=== PATIENT | female | born 1995 | race Caucasian/White ===

== ENCOUNTER 2018-07-22 18:27 | Emergency (ER) | payer OTHER ==
[2018-07-22 19:00] VITALS: RESP 18
--- NOTE | 2018-07-22 20:23 | ED PDOC ---
HPI: Abdomen Time Seen by Provider: 07/22/18 19:39 Chief Complaint (Nursing): Female Genitourinary History Per: Patient History/Exam Limitations: no limitations Onset/Duration Of Symptoms: Days Outside of [place] travel?: No Current Symptoms Are (Timing): Still Present Location Of Pain/Discomfort: Suprapubic Associated Symptoms: Nausea, Vomiting Additional Complaint(s): No PMHx presenting with lower abdominal pain and distension. States that she was in the ER on Thursday for fever and chills and wad diagnosed with UTI and bladder distension, states she was instructed to followup with INSPECTOR AIDE, states today she followed up and was checked, states that she was instructed by her INSPECTOR AIDE to get a sonogram of her pelvis because of her bladder distension. States she has no issues with urinating. States this morning she had nausea and one episode of vomiting that went away. States she feels abdominal discomfort and bloating. Patient relates she has constipation as well. Past Medical History Reviewed: Historical Data, Nursing Documentation, Vital Signs Vital Signs: Last Vital Signs Temp 98.0 F 07/23/18 00:06 Pulse 84 07/23/18 00:06 Resp 18 07/23/18 00:06 BP 122/78 07/23/18 00:06 Pulse Ox 100 07/23/18 00:06 - Medical History PMH: No Chronic Diseases - Family History Family History: States: Diabetes, Hypertension - Home Medications Home Medications: Ambulatory Orders Medication Instructions Recorded Ondansetron ODT [Zofran ODT] 1 odt PO BID PRN #6 odt 10/03/14 Pantoprazole Sodium [Protonix] 40 mg PO DAILY #10 ect 10/03/14 Naproxen [Naprosyn] 500 mg PO BID #20 tablet 07/17/18 Sulfamethoxazole/Trimethoprim 1 tab PO BID #14 tab 07/17/18 [Bactrim DS 800 mg-160 mg] Nitrofurantoin Macrocrystals 100 mg PO BID 5 Days cap 07/22/18 [Macrobid] - Allergies Allergies/Adverse Reactions: Allergies Allergy/AdvReac Type Severity Reaction Status Date / Time No Known Allergies Allergy Verified 07/22/18 18:55 Review of Systems ROS Statement: Except As Marked, All Systems Reviewed And Found Negative Gastrointestinal: Positive for: Nausea, Vomiting, Abdominal Pain Physical Exam - Reviewed Nursing Documentation Reviewed: Yes Vital Signs Reviewed: Yes - Physical Exam Appears: Positive for: Well, Non-toxic, No Acute Distress Head Exam: Positive for: ATRAUMATIC, NORMAL INSPECTION, NORMOCEPHALIC Skin: Positive for: Normal Color, Warm, DRY Eye Exam: Positive for: EOMI, Normal appearance, PERRL ENT: Positive for: Normal ENT Inspection Neck: Positive for: Normal, Painless ROM Cardiovascular/Chest: Positive for: Regular Rate, Rhythm Respiratory: Positive for: CNT, Normal Breath Sounds Gastrointestinal/Abdominal: Positive for: Normal Exam, Soft, Distended ( Suprapubic distension) Back: Positive for: Normal Inspection Extremity: Positive for: Normal ROM Neurologic/Psych: Positive for: Alert, Oriented - ECG O2 Sat by Pulse Oximetry: 99 Pulse Ox Interpretation: Normal Medical Decision Making Medical Decision MakinPM Patient presenting with lower abdominal discomfort and distension -patient comfortable appearing with normal vitals, however has distended lower abdomen indicative of urinary retention -patient able to void freely -will check sonogram of abdomen to check for other pathology 22:30 Renal Ultrasound FINDINGS: Right kidney: Mild hydronephrosis. No stones. No solid mass. No hydronephrosis. Left kidney: No hydronephrosis. No stones. No solid mass. No hydronephrosis. Bladder: Echogenic debris in the bladder. IMPRESSION: Mild bilateral hydronephrosis with echogenic debris in the bladder. Patient was given results, states she is pain free at this time. Advised straight cath or vazquez catheter to decompress bladder but patient refused, states that she thinks it may be related to the ABx because she states the distension started after taking bactrim. Patient asked several times to allow for catheter and refused, advised patient that her bloating may get worse, patient understood this. Discharged in well appearing condition. Disposition - Clinical Impression Clinical Impression: Bladder distension - Disposition Referrals: Sonal Jacobo MD [Family Provider] - Disposition: Routine/Home Disposition Time: 22:30 Condition: STABLE Prescriptions: Nitrofurantoin Macrocrystals [Macrobid] 100 mg PO BID 5 Days cap Instructions: Bladder Spasms (DC) Forms: [employer] (Nauruan)
[2018-07-23 00:07] VITALS: BP 122/78; PULSE 84; TEMP 98
[2018-07-23 04:46] VITALS: O2SAT 99
--- NOTE | 2018-07-23 12:13 | US ---
Date of service: 07/22/2018 PROCEDURE: Ultrasound of the Kidneys HISTORY: lower abd distension, distended bladder on CT COMPARISON: None available. TECHNIQUE: Sonogram of the kidneys. FINDINGS: RIGHT KIDNEY: Measures: 5.2 x 5.3 x 10.9 cm. Normal in size, contour and echogenicity. Mild hydronephrosis. No obstructing lesions or calculi identified. LEFT KIDNEY: Measures: 4.6 x 6.3 x 10.5 cm. Normal in size, contour and echogenicity. Mild and symmetrical left hydronephrosis without calculus disease or obstructing lesion. OTHER FINDINGS: Distended urinary bladder 985 mL. Patient did not express an urge to void. Debris identified within the bladder. No bladder wall abnormalities. IMPRESSION: Distended bladder. Bilateral hydronephrosis mild and symmetrical. Concordant results (preliminary interpretation) provided by [employer]. Procedure Completed: 20:58. Preliminary ([employer]) Report: Dictated and Authenticated: 22:30. Final Interpretation: 12:12. July 23, 2018.
== END 2018-07-23 00:06 | disposition home or self-care (01) ==
LOC: H.ER 18:27
DX: N13.30 Unspecified hydronephrosis (principal)

== ENCOUNTER 2018-07-23 06:04 | Inpatient (IN) | payer OTHER ==
--- NOTE | 2018-07-23 07:00 | ED PDOC ---
HPI: Female Pain Time Seen by Provider: 07/23/18 06:25 Chief Complaint (Nursing): Female Genitourinary Chief Complaint (Provider): Hematuria History Per: Patient History/Exam Limitations: no limitations Onset/Duration Of Symptoms: Hrs Current Symptoms Are (Timing): Still Present Associated Symptoms: denies: Nausea, Vomiting, Urinary Symptoms (dysuria) Additional Complaint(s): Mikaela oMody is a 22 year old female, with no significant past medical history , who returns to the emergency department for hematuria. Patient states her abdominal distention is unchanged from few hrs ago and is now agreeing to urinary catheter. She reports normal stools and denies any nausea, vomit or dysuria. No further medical complaints. PMD: None provided. Past Medical History Reviewed: Historical Data, Nursing Documentation, Vital Signs Vital Signs: Last Vital Signs Temp 97.9 F 07/23/18 06:14 Pulse 83 07/23/18 06:14 Resp 18 07/23/18 06:14 BP 125/79 07/23/18 06:14 Pulse Ox 96 07/23/18 06:14 - Medical History PMH: No Chronic Diseases - Surgical History Surgical History: No Surg Hx - Family History Family History: States: Diabetes, Hypertension - Home Medications Home Medications: Ambulatory Orders Medication Instructions Recorded Ondansetron ODT [Zofran ODT] 1 odt PO BID PRN #6 odt 10/03/14 Pantoprazole Sodium [Protonix] 40 mg PO DAILY #10 ect 10/03/14 Naproxen [Naprosyn] 500 mg PO BID #20 tablet 07/17/18 Sulfamethoxazole/Trimethoprim 1 tab PO BID #14 tab 07/17/18 [Bactrim DS 800 mg-160 mg] Nitrofurantoin Macrocrystals 100 mg PO BID 5 Days cap 07/22/18 [Macrobid] Ibuprofen [Motrin Tab] 600 mg PO Q6 #30 tab 07/23/18 Nitrofurantoin Macrocrystals 100 mg PO BID 5 Days cap 07/23/18 [Macrobid] - Allergies Allergies/Adverse Reactions: Allergies Allergy/AdvReac Type Severity Reaction Status Date / Time No Known Allergies Allergy Verified 07/22/18 18:55 Review of Systems ROS Statement: Except As Marked, All Systems Reviewed And Found Negative Gastrointestinal: Negative for: Nausea, Vomiting, Melena, Hematochezia Genitourinary Female: Positive for: Hematuria. Negative for: Dysuria Physical Exam - Reviewed Nursing Documentation Reviewed: Yes Vital Signs Reviewed: Yes - Physical Exam Appears: Positive for: No Acute Distress Head Exam: Positive for: ATRAUMATIC, NORMOCEPHALIC Skin: Positive for: Normal Color, Warm, Dry Eye Exam: Positive for: Normal appearance, EOMI, PERRL Neck: Positive for: Painless ROM Cardiovascular/Chest: Positive for: Regular Rate, Rhythm. Negative for: Murmur Respiratory: Positive for: Normal Breath Sounds. Negative for: Respiratory Distress Gastrointestinal/Abdominal: Positive for: Distended ((unchanged from prior exam earlier this morning) ) Back: Positive for: Normal Inspection. Negative for: L CVA Tenderness, R CVA Tenderness Extremity: Positive for: Normal ROM (upper and lower extremities). Negative for : Deformity Neurologic/Psych: Positive for: Alert, Oriented - Laboratory Results Result Diagrams: 07/23/18 08:02 07/23/18 18:01 - ECG O2 Sat by Pulse Oximetry: 96 (RA) Pulse Ox Interpretation: Normal Medical Decision Making Medical Decision Making: Time: 06:25 A/P: 22 y/o female for urinary retention with hematuria, likely expelling clots that were seen as debris in previous ultrasound. Will insert urinary catheter to drain bladder and reevaluate. Initial Plan: --Urine --Urine dipstick --Macrobid 100 mg PO --Urine culture --Urinalysis --Reevaluation 07:[address] Montgomery pending labs. Darden catheter placed without return of urine. ----- Scribe Attestation: Documented by El Sinclair, acting as a scribe for Rahul Pond MD. Provider Scribe Attestation: All medical record entries made by the Scribe were at my direction and personally dictated by me. I have reviewed the chart and agree that the record accurately reflects my personal performance of the history, physical exam, medical decision making, and the department course for this patient. I have also personally directed, reviewed, and agree with the discharge instructions and disposition. Disposition - Clinical Impression Clinical Impression: Urinary retention, Acute renal failure - Patient ED Disposition Is Patient to be Admitted: Transfer of Care - Disposition Disposition: Transfer of Care Disposition Time: 07:00 Condition: FAIR Patient Signed Over To: Kika Montgomery Handoff Comments: pending labwork and re-eval
[2018-07-23] MEDS ORDERED: Sodium Chloride 0.9% 1,000 ML IV STA (07:35)
[2018-07-23 07:52] LABS: SQUAMOUS EPITHIAL 86 /hpf (0-5); URINE BACTERIA OCC (<OCC); URINE BILIRUBIN NEGATIVE (NEGATIVE); URINE BLOOD LARGE (NEGATIVE); URINE CLARITY TURBID (Clear); URINE COLOR RED (YELLOW); URINE GLUCOSE (UA) NEG (Normal); URINE PROTEIN >=500 mg/dL (NEGATIVE); URINE UROBILINOGEN 0.2-1.0 mg/dL (0.2-1.0)
[2018-07-23 07:59] LABS: URINE LEUKOCYTE ESTERASE LARGE Leu/uL (Negative)
[2018-07-23 08:25] LABS: MEAN CELL VOLUME 92.2 fl (81.0-99.0); MEAN CORPUSCULAR HGB CONC 35.9 g/dL (33.0-37.0); RBC 3.63 Mil/uL (3.80-5.20); WHITE BLOOD COUNT 10.2 K/uL (4.8-10.8)
[2018-07-23 08:26] LABS: BASO # 0.1 K/uL (0.0-0.2); BASO % 0.7 % (0.0-2.0); EOS # 0.3 K/uL (0.0-0.7); EOS % 2.9 % (0.0-4.0); LYMPH # 1.6 K/uL (1.0-4.3); LYMPH % 15.6 % (20.0-40.0); MEAN PLATELET VOLUME 7.6 fl (7.2-11.7); MONO # 1.2 K/uL (0.0-0.8); MONO % 11.6 % (0.0-10.0); NEUT # 7.1 K/uL (1.8-7.0); NEUT % 69.2 % (50.0-75.0); NRBC % 0.1 % (0.0-0.0); RED CELL DISTRIBUTION WIDTH 12.4 % (11.5-14.5)
--- NOTE | 2018-07-23 09:30 | ED PDOC ---
- Laboratory Results Result Diagrams: 07/23/18 08:02 07/23/18 08:02 - ECG O2 Sat by Pulse Oximetry: 96 (RA) Medical Decision Making Medical Decision Making: labs reviewed. patient in acute renal failure. discussed with Dr. Carrasco for admission. Disposition Doctor Will See Patient In The: Hospital - Clinical Impression Clinical Impression: Urinary retention, Acute renal failure - POA Present On Arrival: None - Disposition Referrals: Aileen Patel [place] [Outside] Disposition: Transfer of Care Disposition Time: 09:15 Condition: FAIR Prescriptions: Ibuprofen [Motrin Tab] 600 mg PO Q6 #30 tab Nitrofurantoin Macrocrystals [Macrobid] 100 mg PO BID 5 Days cap Instructions: Urinary Tract Infection, Adult (DC), Urinary Retention (DC), Acute Kidney Failure Forms: [employer] (Maltese)
--- NOTE | 2018-07-23 10:26 | CP.PCM.HP ---
<Nish Lubin - Last Filed: 07/23/18 16:14> History of Present Illness - History of Present Illness History of Present Illness: Pt seen and examined at bedside and evaluated with Dr. Carrasco 22 yo F with no significant pmhx presents to the ED with continued abdominal pain, n/v and urinary retention. She was seen in the ER 07/17: treated for UTI and CT abdo/pelvis performed. She was seen by her Gyne: in [place] at [address] who performed a bladder scan and told pt to come to ED. Pt reports she has been compliant with her Bactrim treatment Urinary symptoms since last ER visit. She reports suprapubic fullness. Urinary fullness with intermittent, partial urinary discharge, however, she reports urinary urge witnin 30 minutes. She denies prior history. PMD: none Gyne: Mahendra Dave Dr. end june, regular monthly famhx: adopted soc: denies smoking or illicit drugs. Social alcohol no hx of STI Surg: R arm as a child NKDA Present on Admission - Present on Admission Any Indicators Present on Admission: No History of DVT/PE: No History of Uncontrolled Diabetes: No Review of Systems - Constitutional Constitutional: As Per HPI - Cardiovascular Cardiovascular: absent: Chest Pain - Respiratory Respiratory: absent: Cough, Dyspnea - Gastrointestinal Gastrointestinal: Abdominal Pain - Genitourinary Genitourinary: Dysuria, Urinary Frequency, Urinary Hesitance, Urinary Urgency, Voiding Freq/Small Amts, Bladder Distension - Reproductive: Female Reproductive:Female: As Per HPI - Menstruation Menstruation: As Per HPI Past Patient History - Past Medical History & Family History Past Medical History?: No - Past Social History Smoking Status: Never Smoked Alcohol: Social Drugs: Denies Home Situation {Lives}: With Family - CARDIAC Hx Cardiac Disorders: No - PULMONARY Hx Respiratory Disorders: No - NEUROLOGICAL Hx Neurological Disorder: No - HEENT Hx HEENT Problems: No - ENDOCRINE/METABOLIC Hx Endocrine Disorders: No - HEMATOLOGICAL/ONCOLOGICAL Hx Blood Disorders: No - INTEGUMENTARY Hx Dermatological Problems: No - MUSCULOSKELETAL/RHEUMATOLOGICAL Hx Musculoskeletal Disorders: No - GENITOURINARY/GYNECOLOGICAL Hx Incontinence: Yes LMP:: 07/03/2018 : 0 Para: 0 - PSYCHIATRIC Hx Psychophysiologic Disorder: No Hx Substance Use: No - SURGICAL HISTORY Hx Surgeries: Yes Hx Orthopedic Surgery: Yes - ANESTHESIA Hx Anesthesia: Yes Meds Home Medications: Home Medication List Medication Instructions Recorded Confirmed Type Ibuprofen [Motrin Tab] 600 mg PO Q6 #30 tab 07/23/18 Rx Nitrofurantoin Macrocrystals 100 mg PO BID 5 Days cap 07/23/18 Rx [Macrobid] Allergies/Adverse Reactions: Allergies Allergy/AdvReac Type Severity Reaction Status Date / Time No Known Allergies Allergy Verified 07/22/18 18:55 Physical Exam - Constitutional Appears: Well, No Acute Distress - Eye Exam Eye Exam: EOMI - ENT Exam ENT Exam: Mucous Membranes Moist - Respiratory Exam Respiratory Exam: Clear to Auscultation Bilateral, NORMAL BREATHING PATTERN. absent: Wheezes - Cardiovascular Exam Cardiovascular Exam: REGULAR RHYTHM, +S1, +S2 - GI/Abdominal Exam GI & Abdominal Exam: Normal Bowel Sounds, Soft. absent: Tenderness - Neurological Exam Neurological exam: Alert, CN II-XII Intact, Oriented x3 - Psychiatric Exam Psychiatric exam: Normal Affect, Normal Mood Results - Vital Signs Recent Vital Signs: Last Vital Signs Temp 97.9 F 07/23/18 06:14 Pulse 83 07/23/18 06:14 Resp 18 07/23/18 06:14 BP 125/79 07/23/18 06:14 Pulse Ox 96 07/23/18 09:31 - Labs Result Diagrams: 07/23/18 08:02 07/23/18 08:02 Labs: Laboratory Results - last 24 hr 07/23/18 07/23/18 07/23/18 07:10 08:02 08:02 WBC 10.2 RBC 3.63 L Hgb 12.0 Hct 33.4 L MCV 92.2 MCH 33.0 H MCHC 35.9 RDW 12.4 Plt Count 386 MPV 7.6 Neut % (Auto) 69.2 Lymph % (Auto) 15.6 L Lamar % (Auto) 11.6 H Eos % (Auto) 2.9 Baso % (Auto) 0.7 Neut # (Auto) 7.1 H Lymph # (Auto) 1.6 Lamar # (Auto) 1.2 H Eos # (Auto) 0.3 Baso # (Auto) 0.1 Sodium 135 Potassium 3.9 Chloride 101 Carbon Dioxide 20 L Anion Gap 18 BUN 37 H Creatinine 4.9 H Est GFR ( Amer) 14 Est GFR (Non-Af Amer) 11 Random Glucose 78 Calcium 9.0 Urine Color Red Urine Clarity Turbid Urine pH 6.0 Ur Specific [employer] 1.022 Urine Protein >=500 Urine Glucose (UA) Neg Urine Ketones Negative Urine Blood Large Urine Nitrate Positive H Urine Bilirubin Negative Urine Urobilinogen 0.2-1.0 Ur Leukocyte Esterase Large Urine RBC (Auto) 673 H Urine Microscopic WBC 254 H Ur Squamous Epith Cells 86 H Urine Bacteria Occ H Assessment & Plan (1) Acute renal failure Status: Acute (2) UTI (urinary tract infection) Status: Acute (3) Urinary retention Status: Acute (4) Bladder distension Status: Acute - Assessment and Plan (Free Text) Plan: 22 yo F with no significant pmhx admitted for Acute renal failure/insufficiency , urinary retention and UTI. Admit to Tele Nephrology: Dr. San consulted; recommendations appreciated: Hydration d5 ns at 80 mls/hr; d/c bactrim; repeat bmp Pending renal ultrasound to r/o obstruction, stone Start abx monitor I&Os f/u urine C&S Monitor vitals Case dw Dr. Danilo Lubin MD PGY2 <Alexandre Carrasco - Last Filed: 07/24/18 21:06> Results - Vital Signs Recent Vital Signs: Last Vital Signs Temp 98.9 F 07/24/18 20:03 Pulse 87 07/24/18 20:03 Resp 17 07/24/18 20:03 BP 164/97 H 07/24/18 20:03 Pulse Ox 100 07/24/18 20:03 - Labs Result Diagrams: 07/23/18 08:02 07/24/18 05:01 Labs: Laboratory Results - last 24 hr 07/24/18 05:01 Sodium 138 Potassium 3.8 Chloride 107 Carbon Dioxide 25 Anion Gap 10 BUN 20 H Creatinine 1.7 H Est GFR ( Amer) 46 Est GFR (Non-Af Amer) 38 Random Glucose 102 Calcium 8.2 L Assessment & Plan - Assessment and Plan (Free Text) Plan: Patient was personally seen and examined by me in rounds with residents. Available labs and diagnostic data reviewed. Case, Patient's condition and management plan discussed with residents in rounds. Agree with resident's progress note. Plan: As ordered.
--- NOTE | 2018-07-23 10:56 | CP.PCM.CON ---
History of Present Illness - History of Present Illness History of Present Illness: this patient whole is 22 years of age Afro-Lao female I was called to see her for abnormal serum creatinine. This patient apparently reported a and she came to the emergency room and straight catheter of the bladder drain approximately 1600 mL of urine and the patient feeling much better now after draining bladder .She reported that she has urine tract infection about couple days ago and she has been taking Bactrim twice a day in the past few days Patient apparently has ultrasound of the abdomen last night about 8 PM when she came. Patient reported nauseous feeling yesterday and one episode of diarrhea but no vomiting. And no burning sensation LMP end of june, regular monthly famhx: adopted soc: denies smoking or illicit drugs. Social alcohol no hx of STI Surg: R arm as a child NKDA Review of Systems - Constitutional Constitutional: Anorexia. absent: Chills - Cardiovascular Cardiovascular: absent: Acrocyanosis, Chest Pain, Claudication, Dyspnea - Respiratory Respiratory: absent: Cough, Dyspnea - Gastrointestinal Gastrointestinal: Abdominal Pain, Cramping - Genitourinary Genitourinary: As Per HPI. absent: Dysuria - Neurological Neurological: absent: Abnormal Gait, Confusion, Dizziness, Focal Weakness - Endocrine Endocrine: absent: Fatigue - Hematologic/Lymphatic Hematologic: absent: Easy Bleeding Past Patient History - Past Medical History & Family History Past Medical History?: No - Past Social History Smoking Status: Never Smoked Alcohol: Social Drugs: Denies Home Situation {Lives}: With Family - CARDIAC Hx Cardiac Disorders: No - PULMONARY Hx Respiratory Disorders: No - NEUROLOGICAL Hx Neurological Disorder: No - HEENT Hx HEENT Problems: No - ENDOCRINE/METABOLIC Hx Endocrine Disorders: No - HEMATOLOGICAL/ONCOLOGICAL Hx Blood Disorders: No - INTEGUMENTARY Hx Dermatological Problems: No - MUSCULOSKELETAL/RHEUMATOLOGICAL Hx Musculoskeletal Disorders: No - GENITOURINARY/GYNECOLOGICAL Hx Incontinence: Yes LMP:: 07/03/2018 : 0 Para: 0 - PSYCHIATRIC Hx Psychophysiologic Disorder: No Hx Substance Use: No - SURGICAL HISTORY Hx Surgeries: Yes Hx Orthopedic Surgery: Yes - ANESTHESIA Hx Anesthesia: Yes Meds Home Medications: Home Medication List Medication Instructions Recorded Confirmed Type Ibuprofen [Motrin Tab] 600 mg PO Q6 #30 tab 07/23/18 Rx Nitrofurantoin Macrocrystals 100 mg PO BID 5 Days cap 07/23/18 Rx [Macrobid] Allergies/Adverse Reactions: Allergies Allergy/AdvReac Type Severity Reaction Status Date / Time No Known Allergies Allergy Verified 07/22/18 18:55 Physical Exam - Constitutional Appears: No Acute Distress - ENT Exam ENT Exam: Mucous Membranes Moist - Neck Exam Neck exam: Negative for: Lymphadenopathy - Respiratory Exam Respiratory Exam: NORMAL BREATHING PATTERN. absent: Chest Wall Tenderness - Cardiovascular Exam Cardiovascular Exam: REGULAR RHYTHM. absent: Gallop, JVD, Rubs - GI/Abdominal Exam GI & Abdominal Exam: absent: Distended, Guarding, Organomegaly - Extremities Exam Extremities exam: Negative for: calf tenderness - Back Exam Back exam: absent: CVA tenderness (L), CVA tenderness (R) - Neurological Exam Neurological exam: Alert - Psychiatric Exam Psychiatric exam: Normal Affect Results - Vital Signs Recent Vital Signs: Last Vital Signs Temp 98.0 F 07/23/18 10:31 Pulse 81 07/23/18 10:31 Resp 20 07/23/18 10:31 BP 144/75 07/23/18 10:31 Pulse Ox 99 07/23/18 10:31 - Labs Result Diagrams: 07/23/18 08:02 07/23/18 08:02 Labs: Laboratory Results - last 24 hr 07/23/18 07/23/18 07/23/18 07:10 08:02 08:02 WBC 10.2 RBC 3.63 L Hgb 12.0 Hct 33.4 L MCV 92.2 MCH 33.0 H MCHC 35.9 RDW 12.4 Plt Count 386 MPV 7.6 Neut % (Auto) 69.2 Lymph % (Auto) 15.6 L [place] % (Auto) 11.6 H Eos % (Auto) 2.9 Baso % (Auto) 0.7 Neut # (Auto) 7.1 H Lymph # (Auto) 1.6 [place] # (Auto) 1.2 H Eos # (Auto) 0.3 Baso # (Auto) 0.1 Sodium 135 Potassium 3.9 Chloride 101 Carbon Dioxide 20 L Anion Gap 18 BUN 37 H Creatinine 4.9 H Est GFR ( Amer) 14 Est GFR (Non-Af Amer) 11 Random Glucose 78 Calcium 9.0 Urine Color Red Urine Clarity Turbid Urine pH 6.0 Ur Specific [place] 1.022 Urine Protein >=500 Urine Glucose (UA) Neg Urine Ketones Negative Urine Blood Large Urine Nitrate Positive H Urine Bilirubin Negative Urine Urobilinogen 0.2-1.0 Ur Leukocyte Esterase Large Urine RBC (Auto) 673 H Urine Microscopic WBC 254 H Ur Squamous Epith Cells 86 H Urine Bacteria Occ H Assessment & Plan (1) Acute renal failure Assessment and Plan: probably acute kidney injury related to obstructive uropathy related to bladder retention Straight catheter put in and 1600 mL of urine was drained Kidney function as expprove after draining the bladder To do ultrasound of the kidney which has been done 8 PM last night no report available as of yet Stat spot urine for sodium osmolality and crinine Discontinue Bactrim Hydration D5 normal saline at 80 mL/h continue monitor urine output Repeat BMP 6 PM today and tomorrow morning Status: Acute (2) UTI (urinary tract infection) Status: Acute (3) Urinary retention Status: Acute
[2018-07-23 13:54] LABS: CREATININE, RANDOM URINE 47.2 mg/dL
[2018-07-23] MEDS: Dextrose 5%/0.9% NS 1,000 ML IV SCH (16:38)
[2018-07-23 19:16] LABS: CALCIUM 8.1 mg/dL (8.4-10.2)
[2018-07-24] MEDS: Meropenem 1 GM in Sodium Chloride 0.9% 100 ML IVPB SCH ×3 (02:31→21:10)
[2018-07-24 06:19] LABS: CALCIUM 8.2 mg/dL (8.4-10.2)
--- NOTE | 2018-07-24 07:20 | CARD ---
APPROVED REPORT Date of service: 07/23/2018 EKG Measurement Heart [id number] <Conclusion> Normal sinus rhythm Normal Electrocardiogram
[2018-07-24] MEDS: Dextrose 5%/0.9% NS 1,000 ML IV SCH (07:45)
--- NOTE | 2018-07-24 13:44 | CP.PCM.PN ---
Subjective - Date & Time of Evaluation Date of Evaluation: 07/24/18 Time of Evaluation: 13:42 - Subjective Subjective: RENAL s: seen and examiend no events o/n excellent uo o: vs as below gen: nad scelra: anicteric op: clear neck: supple cv: +s1+s2 lungs cta abd: soft ext: no edema neuro: a+ox3 psych: nml affect skin no rash imp: arf / obstructive uropathy / anemia / hypok plan: VENKATA improving w/ vazquez recc consult as to work up etiology of urinary retention hgb stable K improved Objective - Vital Signs/Intake and Output Vital Signs (last 24 hours): Temp Pulse Resp BP Pulse Ox 98.2 F 67 20 114/78 98 07/24/18 12:07 07/24/18 12:07 07/24/18 12:07 07/24/18 12:07 07/24/18 12:07 Intake and Output: 07/24/18 07/24/18 06:59 18:59 Intake Total 840 Output Total 1300 Balance -460 - Medications Medications: Current Medications Dextrose/Sodium Chloride (Dextrose 5%/0.9% Ns 1000 Ml) 1,000 mls @ 80 mls/hr IV .[id number] FAISAL Stop: 07/24/18 16:00 Last Admin: 07/24/18 07:45 Dose: 80 mls/hr Meropenem 1 gm/ Sodium (Chloride) 100 mls @ 100 mls/hr IVPB Q12 FAISAL PRN Reason: Protocol Last Admin: 07/24/18 09:59 Dose: 100 mls/hr Ceftriaxone Sodium 1 gm/ (Sodium Chloride) 100 mls @ 100 mls/hr IVPB DAILY FAISAL PRN Reason: Protocol Last Admin: 07/24/18 10:00 Dose: 100 mls/hr - Labs Labs: 07/23/18 08:02 07/24/18 05:01
--- NOTE | 2018-07-24 14:03 | PN ---
DATE: 07/24/2018 SUBJECTIVE: The patient seen and examined. Interim events noted. The patient remains in progressive care unit, on telemetry monitoring. Consults noted and appreciated. Nephrology followup and intervention noted and appreciated. The patient feels much better. No chest pain. No shortness of breath. No urinary symptoms. The patient does have discomfort from catheter, but no burning, lower back pain, or abdominal pain. PHYSICAL EXAMINATION: GENERAL: The patient is in no acute distress. VITAL SIGNS: Stable. HEART: S1 and S2, normal and regular. LUNGS: Good bilateral air exchange. ABDOMEN: Soft, nontender. No organomegaly. No fluid. Bowel sounds are plus and normal. No suprapubic fullness or tenderness. EXTREMITIES: No edema. No calf swelling. No tenderness. No acute ischemia. MID WIFE: Exam is essentially unchanged. DIAGNOSTIC DATA: Available diagnostic data reviewed. ASSESSMENT AND PLAN: The patient seen renal function is improving very well. Creatinine is down to 1.7. Overall, the patient is clinically stable and improving. Telemetry monitoring does not reveal significant arrhythmia. Plan as ordered. Case and plan discussed with the patient. Alexandre Carrasco MD
[2018-07-25 04:59] LABS: HEMOGLOBIN 10.4 g/dL (12.0-16.0); MEAN CORPUSCULAR HEMOGLOBIN 33.1 pg (27.0-31.0); MEAN CORPUSCULAR HGB CONC 35.3 g/dL (33.0-37.0); RBC 3.13 Mil/uL (3.80-5.20); RED CELL DISTRIBUTION WIDTH 11.9 % (11.5-14.5); WHITE BLOOD COUNT 5.5 K/uL (4.8-10.8)
[2018-07-25 06:00] LABS: ALT/SGPT 28 U/L (9-52); AST/SGOT 19 U/L (14-36); BLOOD UREA NITROGEN 11 mg/dl (7-17); CALCIUM 8.1 mg/dL (8.4-10.2); GFR NON-AFRICAN AMERICAN 57
[2018-07-25 07:23] LABS: IRON 141 ug/dL (37-170)
[2018-07-25 07:32] LABS: % IRON SATURATION 60 % (20-55); TOTAL IRON BINDING CAPACITY 233 ug/dL (250-450)
[2018-07-25] MEDS: Meropenem 1 GM in Sodium Chloride 0.9% 100 ML IVPB SCH ×2 (08:39→21:33)
--- NOTE | 2018-07-25 11:32 | PN ---
DATE: 07/25/2018 SUBJECTIVE: The patient seen and examined. Interim events noted. The patient remains in regular medical floor with telemetry monitoring. Feels much better. No chest pain. No shortness of breath. No urinary symptoms, although she has discomfort from the Darden catheter. No fever or back pain. PHYSICAL EXAMINATION: GENERAL: The patient is in no acute distress. VITAL SIGNS: Stable. HEART: S1, S2 normal and regular. LUNGS: Good bilateral air exchange. ABDOMEN: Soft, nontender. No organomegaly. No fluid. Bowel sounds are present and normal. No suprapubic tenderness or fullness appreciated. Darden catheter is draining clear urine. EXTREMITIES: No edema. No calf swelling. No tenderness. No acute ischemia. WATER CONSERVATION SPECIALIST: Exam is essentially unchanged. DIAGNOSTIC DATA: Available diagnostic data reviewed. Telemetry monitoring does not show significant arrhythmia. ASSESSMENT AND PLAN: Overall, the patient's general medical condition is stable. Plan as ordered. Alexandre Carrasco MD
--- NOTE | 2018-07-25 12:22 | CP.PCM.CON ---
History of Present Illness - History of Present Illness History of Present Illness: 22 y old woman presented with dysuria and abdominal pain, headache and fever. Found to have UTI and distended bladder on workup. Without heache or pain or fever Past Patient History - Past Medical History & Family History Past Medical History?: No - Past Social History Smoking Status: Never Smoked Alcohol: Social Drugs: Denies Home Situation {Lives}: With Family - CARDIAC Hx Cardiac Disorders: No - PULMONARY Hx Respiratory Disorders: No - NEUROLOGICAL Hx Neurological Disorder: No - HEENT Hx HEENT Problems: No - RENAL Hx Chronic Kidney Disease: No - ENDOCRINE/METABOLIC Hx Endocrine Disorders: No - HEMATOLOGICAL/ONCOLOGICAL Hx Blood Disorders: No - INTEGUMENTARY Hx Dermatological Problems: No - MUSCULOSKELETAL/RHEUMATOLOGICAL Hx Musculoskeletal Disorders: No - GASTROINTESTINAL Hx Gastrointestinal Disorders: No - GENITOURINARY/GYNECOLOGICAL Hx Incontinence: Yes LMP:: 07/03/2018 : 0 Para: 0 - PSYCHIATRIC Hx Psychophysiologic Disorder: No Hx Substance Use: No - SURGICAL HISTORY Hx Surgeries: Yes Hx Orthopedic Surgery: Yes - ANESTHESIA Hx Anesthesia: Yes Meds Home Medications: Home Medication List Medication Instructions Recorded Confirmed Type Ibuprofen [Motrin Tab] 600 mg PO Q6 #30 tab 07/23/18 Rx Nitrofurantoin Macrocrystals 100 mg PO BID 5 Days cap 07/23/18 Rx [Macrobid] Allergies/Adverse Reactions: Allergies Allergy/AdvReac Type Severity Reaction Status Date / Time No Known Allergies Allergy Verified 07/22/18 18:55 - Medications Medications: Current Medications Meropenem 1 gm/ Sodium (Chloride) 100 mls @ 100 mls/hr IVPB Q12 FAISAL PRN Reason: Protocol Last Admin: 07/25/18 08:39 Dose: 100 mls/hr Ceftriaxone Sodium 1 gm/ (Sodium Chloride) 100 mls @ 100 mls/hr IVPB DAILY FAISAL PRN Reason: Protocol Last Admin: 07/25/18 08:48 Dose: 100 mls/hr Results - Vital Signs Recent Vital Signs: Last Vital Signs Temp 98.3 F 07/25/18 09:00 Pulse 69 07/25/18 09:00 Resp 20 07/25/18 09:00 BP 105/73 07/25/18 09:00 Pulse Ox 100 07/25/18 09:00 - Labs Result Diagrams: 07/25/18 04:10 07/25/18 04:10 Labs: Laboratory Results - last 24 hr 07/25/18 07/25/18 07/25/18 04:10 04:10 07:00 WBC 5.5 RBC 3.13 L Hgb 10.4 L Hct 29.4 L MCV 94.0 MCH 33.1 H MCHC 35.3 RDW 11.9 Plt Count 346 Retic Count 1.1 Sodium 139 Potassium 3.8 Chloride 107 Carbon Dioxide 25 Anion Gap 11 BUN 11 Creatinine 1.2 Est GFR ( Amer) > 60 Est GFR (Non-Af Amer) 57 Random Glucose 113 H Calcium 8.1 L Phosphorus 2.9 Magnesium 1.7 Iron TIBC % Saturation Ferritin Total Bilirubin 0.6 AST 19 ALT 28 Alkaline Phosphatase 33 L D Total Protein 6.2 L Albumin 3.0 L D Globulin 3.1 Albumin/Globulin Ratio 1.0 Vitamin B12 602 TSH 3rd Generation 2.78 07/25/18 07/25/18 07:00 07:00 WBC RBC Hgb Hct MCV MCH MCHC RDW Plt Count Retic Count Sodium Potassium Chloride Carbon Dioxide Anion Gap BUN Creatinine Est GFR ( Amer) Est GFR (Non-Af Amer) Random Glucose Calcium Phosphorus Magnesium Iron 141 TIBC 233 L % Saturation 60 H Ferritin 117.0 Total Bilirubin AST ALT Alkaline Phosphatase Total Protein Albumin Globulin Albumin/Globulin Ratio Vitamin B12 TSH 3rd Generation Assessment & Plan - Assessment and Plan (Free Text) Assessment: UTI with status post acute urinary retention. Would d/c catheter in view of increased risk of infection and attempt urinating on own. Continue Rocephin for a total of 7 days #3/
[2018-07-26] MEDS: Meropenem 1 GM in Sodium Chloride 0.9% 100 ML IVPB SCH (08:36)
--- NOTE | 2018-07-26 10:32 | CP.PCM.PN ---
Subjective - Date & Time of Evaluation Date of Evaluation: 07/26/18 Time of Evaluation: 10:30 - Subjective Subjective: patient is alert and conscious not in acute distress No nausea no vomiting Objective - Vital Signs/Intake and Output Vital Signs (last 24 hours): Temp Pulse Resp BP Pulse Ox 98.3 F 84 18 115/74 98 07/26/18 08:45 07/26/18 09:00 07/26/18 08:45 07/26/18 08:45 07/26/18 08:45 Intake and Output: 07/26/18 07/26/18 06:59 18:59 Output Total 1225 Balance -1225 - Medications Medications: Current Medications Meropenem 1 gm/ Sodium (Chloride) 100 mls @ 100 mls/hr IVPB Q12 FAISAL PRN Reason: Protocol Last Admin: 07/26/18 08:36 Dose: 100 mls/hr Ceftriaxone Sodium 1 gm/ (Sodium Chloride) 100 mls @ 100 mls/hr IVPB DAILY FAISAL PRN Reason: Protocol Last Admin: 07/26/18 08:36 Dose: 100 mls/hr - Labs Labs: 07/25/18 04:10 07/25/18 04:10 - Constitutional Appears: No Acute Distress - ENT Exam ENT Exam: Mucous Membranes Moist - Neck Exam Neck Exam: absent: Lymphadenopathy - Cardiovascular Exam Cardiovascular Exam: absent: Gallop, JVD, Rubs - GI/Abdominal Exam GI & Abdominal Exam: Soft, Normal Bowel Sounds - Extremities Exam Extremities Exam: absent: Calf Tenderness - Back Exam Back Exam: absent: CVA tenderness (L), CVA tenderness (R) - Neurological Exam Neurological Exam: Alert - Psychiatric Exam Psychiatric exam: Normal Affect - Skin Skin Exam: absent: Cyanosis Assessment and Plan (1) Acute renal failure Assessment & Plan: recovering from ATN related to obstructive uropathy Ultrasound bilateral hydronephrosis initially My recommendation Please call urologists for consultation patient is still cannot urinate without catheter high uric acid to repeat serum uric acid Status: Acute (2) UTI (urinary tract infection) Status: Acute (3) Urinary retention Status: Acute
--- NOTE | 2018-07-26 13:29 | CP.PCM.PN ---
Subjective - Date & Time of Evaluation Date of Evaluation: 07/26/18 Time of Evaluation: 13:25 - Subjective Subjective: 22 year old female who was admitted with urinary retention and uti wbc has dropped since admission. Pt failed voiding trial vazquez in place Bladder not distended.Suggest full course of sensitive antibiotics. Give voiding trial in 7 to 10 days. If fails pt should have urodynamic and cystoscopic eval as out patient. Hien Objective - Vital Signs/Intake and Output Vital Signs (last 24 hours): Temp Pulse Resp BP Pulse Ox 98.3 F 84 18 115/74 98 07/26/18 08:45 07/26/18 09:00 07/26/18 08:45 07/26/18 08:45 07/26/18 08:45 Intake and Output: 07/26/18 07/26/18 06:59 18:59 Output Total 1225 Balance -1225 - Medications Medications: Current Medications Meropenem 1 gm/ Sodium (Chloride) 100 mls @ 100 mls/hr IVPB Q12 FAISAL PRN Reason: Protocol Last Admin: 07/26/18 08:36 Dose: 100 mls/hr Ceftriaxone Sodium 1 gm/ (Sodium Chloride) 100 mls @ 100 mls/hr IVPB DAILY FAISAL PRN Reason: Protocol Last Admin: 07/26/18 08:36 Dose: 100 mls/hr - Labs Labs: 07/25/18 04:10 07/25/18 04:10
[2018-07-26 16:21] LABS: URINE BILIRUBIN NEGATIVE (NEGATIVE); URINE BLOOD SMALL (NEGATIVE); URINE CLARITY SLIGHTY-CLOUDY (Clear); URINE COLOR YELLOW (YELLOW); URINE GLUCOSE (UA) NEG (Normal); URINE LEUKOCYTE ESTERASE NEG Leu/uL (Negative); URINE PROTEIN 30 mg/dL (NEGATIVE)
[2018-07-26 16:52] LABS: CREATININE, RANDOM URINE 49.5 mg/dL
--- NOTE | 2018-07-26 19:43 | CP.PCM.PN ---
<DupreeCaronVicki Y - Last Filed: 07/26/18 19:37> Subjective - Date & Time of Evaluation Date of Evaluation: 07/26/18 Time of Evaluation: 19:00 - Subjective Subjective: not able to urinate after vazquez removal, vazquez reinserted, no dysuria or abd pain, eating well Objective - Vital Signs/Intake and Output Vital Signs (last 24 hours): Temp Pulse Resp BP Pulse Ox 98.2 F 87 16 120/82 100 07/26/18 15:58 07/26/18 15:58 07/26/18 15:58 07/26/18 15:58 07/26/18 15:58 Intake and Output: 07/26/18 07/27/18 18:59 06:59 Intake Total 700 Output Total 2000 Balance -1300 - Medications Medications: Current Medications Ceftriaxone Sodium 1 gm/ (Sodium Chloride) 100 mls @ 100 mls/hr IVPB DAILY FAISAL PRN Reason: Protocol Last Admin: 07/26/18 08:36 Dose: 100 mls/hr - Labs Labs: 07/25/18 04:10 07/25/18 04:10 - Constitutional Appears: Well, No Acute Distress - Head Exam Head Exam: ATRAUMATIC, NORMAL INSPECTION - Eye Exam Eye Exam: EOMI, Normal appearance Pupil Exam: NORMAL ACCOMODATION, PERRL - ENT Exam ENT Exam: Mucous Membranes Moist - Neck Exam Neck Exam: Full ROM, Normal Inspection - Respiratory Exam Respiratory Exam: Clear to Ausculation Bilateral - Cardiovascular Exam Cardiovascular Exam: REGULAR RHYTHM - GI/Abdominal Exam GI & Abdominal Exam: Soft, Normal Bowel Sounds - Extremities Exam Extremities Exam: Full ROM, Normal Inspection - Back Exam Back Exam: NORMAL INSPECTION - Neurological Exam Neurological Exam: Alert, Awake, Oriented x3 - Psychiatric Exam Psychiatric exam: Normal Affect, Normal Mood - Skin Skin Exam: Normal Color, Warm Assessment and Plan - Assessment and Plan (Free Text) Assessment: 22 y/o with (1) Acute renal failure recovering from ATN secondary to obstructive uropathy Ultrasound bilateral hydronephrosis, improved with vazquez cath, renal function improved (2) UTI (urinary tract infection) as per order (3) Urinary retention vazquez and urology follow up <Alexandre Carrasco K - Last Filed: 07/27/18 10:47> Objective - Vital Signs/Intake and Output Vital Signs (last 24 hours): Temp Pulse Resp BP Pulse Ox 98.0 F 74 18 120/83 98 07/27/18 09:03 07/27/18 09:03 07/27/18 09:03 07/27/18 09:03 07/27/18 09:03 Intake and Output: 07/27/18 07/27/18 06:59 18:59 Intake Total 0 Output Total 925 Balance -925 - Medications Medications: Current Medications Ceftriaxone Sodium 1 gm/ (Sodium Chloride) 100 mls @ 100 mls/hr IVPB DAILY FAISAL PRN Reason: Protocol Last Admin: 07/27/18 09:32 Dose: 100 mls/hr - Labs Labs: 07/27/18 05:20 07/27/18 05:20
[2018-07-27 06:16] LABS: HEMOGLOBIN 11.4 g/dL (12.0-16.0); MEAN CELL VOLUME 94.7 fl (81.0-99.0); MEAN CORPUSCULAR HGB CONC 34.8 g/dL (33.0-37.0); RBC 3.46 Mil/uL (3.80-5.20); RED CELL DISTRIBUTION WIDTH 12.1 % (11.5-14.5); WHITE BLOOD COUNT 5.5 K/uL (4.8-10.8)
[2018-07-27 06:20] LABS: ALBUMIN 3.4 g/dL (3.5-5.0); ALT/SGPT 23 U/L (9-52); AST/SGOT 18 U/L (14-36); BLOOD UREA NITROGEN 9 mg/dl (7-17); CALCIUM 8.9 mg/dL (8.4-10.2); GFR NON-AFRICAN AMERICAN > 60
--- NOTE | 2018-07-27 09:14 | CP.PCM.PN ---
Subjective - Date & Time of Evaluation Date of Evaluation: 07/27/18 Time of Evaluation: 09:13 - Subjective Subjective: patient feeling good asymptomatic Objective - Vital Signs/Intake and Output Vital Signs (last 24 hours): Temp Pulse Resp BP Pulse Ox 98.0 F 74 18 120/83 98 07/27/18 09:03 07/27/18 09:03 07/27/18 09:03 07/27/18 09:03 07/27/18 09:03 Intake and Output: 07/27/18 07/27/18 06:59 18:59 Intake Total 0 Output Total 925 Balance -925 - Medications Medications: Current Medications Ceftriaxone Sodium 1 gm/ (Sodium Chloride) 100 mls @ 100 mls/hr IVPB DAILY FAISAL PRN Reason: Protocol Last Admin: 07/26/18 08:36 Dose: 100 mls/hr - Labs Labs: 07/27/18 05:20 07/27/18 05:20 - Constitutional Appears: No Acute Distress - ENT Exam ENT Exam: Mucous Membranes Moist - Neck Exam Neck Exam: absent: Lymphadenopathy - Cardiovascular Exam Cardiovascular Exam: absent: JVD - GI/Abdominal Exam GI & Abdominal Exam: Soft, Normal Bowel Sounds - Extremities Exam Extremities Exam: absent: Calf Tenderness - Back Exam Back Exam: absent: CVA tenderness (L), CVA tenderness (R) - Neurological Exam Neurological Exam: Alert - Skin Skin Exam: absent: Cyanosis Assessment and Plan (1) Acute renal failure Assessment & Plan: recovering from ATN related to obstructive uropathy Ultrasound bilateral hydronephrosis initially serum creatinine back to normal 0.9 The plan follow-up also patient hypoalbuminemic etiology not clear Serum uric acid corrected Status: Acute (2) UTI (urinary tract infection) Status: Acute (3) Urinary retention Status: Acute
--- NOTE | 2018-07-27 10:24 | PN ---
DATE: 07/27/2018 SUBJECTIVE: The patient seen and examined. Interim events noted. Consults noted and appreciated. Urology and Infectious Disease consults noted and appreciated. The patient remains in progressive care unit, on telemetry monitoring. The patient is back with Darden catheter as voiding trial has failed. The patient feels okay. Denies any chest pain, shortness of breath, any urinary symptoms, any back pain or any abdominal pain. PHYSICAL EXAMINATION: GENERAL: The patient is in no acute distress. VITAL SIGNS: Stable. HEART EXAM: S1, S2, normal and regular. LUNGS: Good bilateral air exchange. ABDOMEN: Soft and nontender. No organomegaly. No fluid. No sign of acute abdomen. No guarding. No rigidity noted. No rebound. No suprapubic tenderness. No costovertebral tenderness. EXTREMITIES: No edema. No calf swelling. No tenderness. No acute ischemia. ROOM SERVICE CLERK: Essentially unchanged. DIAGNOSTIC DATA: Available diagnostic data reviewed. Telemetry monitoring does not show significant arrhythmias. ASSESSMENT AND PLAN: Overall, the patient's general medical condition is stable. Plan as ordered. Alexandre Carrasco MD
[2018-07-27] MEDS ORDERED: Bethanechol 50 MG TAB PO SCH (13:00)
--- NOTE | 2018-07-28 15:22 | CP.PCM.PN ---
Subjective - Date & Time of Evaluation Date of Evaluation: 07/28/18 Time of Evaluation: 08:00 - Subjective Subjective: No acute overnight events. No complaints. Darden in place. No Dysuria, fever, chills. Objective - Vital Signs/Intake and Output Vital Signs (last 24 hours): Temp Pulse Resp BP Pulse Ox 98 F 73 20 110/65 99 07/28/18 08:36 07/28/18 08:36 07/28/18 08:36 07/28/18 08:36 07/28/18 08:36 - Medications Medications: Current Medications Ceftriaxone Sodium 1 gm/ (Sodium Chloride) 100 mls @ 100 mls/hr IVPB DAILY FAISAL PRN Reason: Protocol Last Admin: 07/28/18 09:52 Dose: 100 mls/hr - Labs Labs: 07/27/18 05:20 07/27/18 05:20 - Constitutional Appears: Well, Non-toxic, No Acute Distress - Head Exam Head Exam: NORMAL INSPECTION - Eye Exam Eye Exam: Normal appearance - ENT Exam ENT Exam: Mucous Membranes Moist - Neck Exam Neck Exam: Full ROM - Respiratory Exam Respiratory Exam: Clear to Ausculation Bilateral - Cardiovascular Exam Cardiovascular Exam: REGULAR RHYTHM - GI/Abdominal Exam GI & Abdominal Exam: Soft. absent: Tenderness - Extremities Exam Extremities Exam: Normal Inspection - Neurological Exam Neurological Exam: Alert - Psychiatric Exam Psychiatric exam: Normal Mood - Skin Skin Exam: Normal Color Assessment and Plan (1) UTI (urinary tract infection) Status: Acute (2) Urinary retention Status: Acute (3) Acute renal failure Status: Resolved - Assessment and Plan (Free Text) Assessment: 22 y/o female who presented with acute renal failure secondary to obstructive uropathy, renal function improved and on IV antibiotics, now with urinary incontinence. Darden in place. C/W current management. Urology on board. Discussed case with Dr. Danilo Dorantes, PGY2
[2018-07-28 23:50] VITALS: O2SAT 100
[2018-07-29 08:01] VITALS: BP 113/76; PULSE 69; RESP 20; TEMP 98.3
--- NOTE | 2018-07-29 16:07 | CP.PCM.DIS ---
Provider - Provider Date of Admission: 07/23/18 09:31 Attending physician: Alexandre Carrasco MD Time Spent in preparation of Discharge (in minutes): 35 Diagnosis - Discharge Diagnosis (1) UTI (urinary tract infection) Status: Acute (2) Urinary retention Status: Acute (3) Acute renal failure Status: Resolved Hospital Course - Lab Results Lab Results: Micro Results 07/26/18 16:08 Urine,Catheterized Urine Culture - Final No Growth (<1,000 CFU/ML) 07/23/18 07:10 Urine,Clean Catch Urine Culture - Final <10,000 CFU/ML. MULTIPLE SPECIES. PROBABLE CONTAMINATION. Most Recent Lab Values WBC 5.5 K/uL (4.8-10.8) 07/27/18 05:20 RBC 3.46 Mil/uL (3.80-5.20) L 07/27/18 05:20 Hgb 11.4 g/dL (12.0-16.0) L 07/27/18 05:20 Hct 32.8 % (34.0-47.0) L 07/27/18 05:20 MCV 94.7 fl (81.0-99.0) 07/27/18 05:20 MCH 33.0 pg (27.0-31.0) H 07/27/18 05:20 MCHC 34.8 g/dL (33.0-37.0) 07/27/18 05:20 RDW 12.1 % (11.5-14.5) 07/27/18 05:20 Plt Count 413 K/uL (130-400) H 07/27/18 05:20 MPV 7.6 fl (7.2-11.7) 07/23/18 08:02 Neut % (Auto) 69.2 % (50.0-75.0) 07/23/18 08:02 Lymph % (Auto) 15.6 % (20.0-40.0) L 07/23/18 08:02 Humphreys % (Auto) 11.6 % (0.0-10.0) H 07/23/18 08:02 Eos % (Auto) 2.9 % (0.0-4.0) 07/23/18 08:02 Baso % (Auto) 0.7 % (0.0-2.0) 07/23/18 08:02 Neut # (Auto) 7.1 K/uL (1.8-7.0) H 07/23/18 08:02 Lymph # (Auto) 1.6 K/uL (1.0-4.3) 07/23/18 08:02 Humphreys # (Auto) 1.2 K/uL (0.0-0.8) H 07/23/18 08:02 Eos # (Auto) 0.3 K/uL (0.0-0.7) 07/23/18 08:02 Baso # (Auto) 0.1 K/uL (0.0-0.2) 07/23/18 08:02 Retic Count 1.1 % (0.5-1.5) 07/25/18 07:00 Sodium 139 mmol/l (132-148) 07/27/18 05:20 Potassium 4.2 MMOL/L (3.6-5.0) 07/27/18 05:20 Chloride 106 mmol/L (98-107) 07/27/18 05:20 Carbon Dioxide 29 mmol/L (22-30) 07/27/18 05:20 Anion Gap 8 (10-20) L 07/27/18 05:20 BUN 9 mg/dl (7-17) 07/27/18 05:20 Creatinine 0.9 mg/dl (0.7-1.2) 07/27/18 05:20 Est GFR ( Amer) > 60 07/27/18 05:20 Est GFR (Non-Af Amer) > 60 07/27/18 05:20 Random Glucose 88 mg/dL (65-105) 07/27/18 05:20 Uric Acid 5.8 mg/Dl (2.2-7.5) 07/26/18 10:38 Calcium 8.9 mg/dL (8.4-10.2) 07/27/18 05:20 Phosphorus 2.9 mg/dl (2.5-4.5) 07/25/18 04:10 Magnesium 1.7 MG/DL (1.6-2.3) 07/25/18 04:10 Iron 141 ug/dL (37-170) 07/25/18 07:00 TIBC 233 ug/dL (250-450) L 07/25/18 07:00 % Saturation 60 % (20-55) H 07/25/18 07:00 Ferritin 117.0 ng/Ml (6.24-137.0) 07/25/18 07:00 Total Bilirubin 0.6 mg/dl (0.2-1.3) 07/27/18 05:20 AST 18 U/L (14-36) 07/27/18 05:20 ALT 23 U/L (9-52) 07/27/18 05:20 Alkaline Phosphatase 40 U/L (38-126) 07/27/18 05:20 Total Protein 6.9 G/DL (6.3-8.2) 07/27/18 05:20 Albumin 3.4 g/dL (3.5-5.0) L 07/27/18 05:20 Globulin 3.4 gm/dL (2.2-3.9) 07/27/18 05:20 Albumin/Globulin Ratio 1.0 (1.0-2.1) 07/27/18 05:20 Vitamin B12 602 pg/mL (239-931) 07/25/18 04:10 TSH 3rd Generation 2.78 mIU/ML (0.46-4.68) 07/25/18 04:10 Urine Color Yellow (YELLOW) 07/26/18 16:08 Urine Clarity Slighty-cloudy (Clear) 07/26/18 16:08 Urine pH 7.0 (5.0-8.0) 07/26/18 16:08 Ur Specific [place] 1.006 (1.003-1.030) 07/26/18 16:08 Urine Protein 30 mg/dL (NEGATIVE) 07/26/18 16:08 Urine Glucose (UA) Neg mg/dL (Normal) 07/26/18 16:08 Urine Ketones Negative mg/dL (NEGATIVE) 07/26/18 16:08 Urine Blood Small (NEGATIVE) 07/26/18 16:08 Urine Nitrate Negative (NEGATIVE) 07/26/18 16:08 Urine Bilirubin Negative (NEGATIVE) 07/26/18 16:08 Urine Urobilinogen 2.0 mg/dL (0.2-1.0) H 07/26/18 16:08 Ur Leukocyte Esterase Neg [place]/uL (Negative) 07/26/18 16:08 Urine RBC (Auto) 6 /hpf (0-3) H 07/26/18 16:08 Urine Microscopic WBC 2 /hpf (0-5) 07/26/18 16:08 Ur Squamous Epith Cells 86 /hpf (0-5) H 07/23/18 07:10 Urine Bacteria Occ (<OCC) H 07/23/18 07:10 Ur Random Creatinine 49.5 mg/dL 07/26/18 16:08 U Random Total Protein 18.0 mg/dL (0.0-12.0) H 07/26/18 16:08 Ur Random Sodium 79 mmol/L 07/23/18 13:20 - Hospital Course Hospital Course: Pt is a 22 y/o female who was admitted to the hospital for Acute renal failure after failed outpatient therapy for UTI. Pt was found to have hydronephrosis and VENKATA improved after vazquez placement suggestive post obstructive uropathy. Pt was noted to have urinary retention after failing trial of voids multiple times. Urology was consulted and pt was advised to keep vazquez in for 7-10 days and attempt trial of void outpatient. Pt received a total of 7 days of IV antibiotics and was stable for discharge with vazquez. Discharge medications:none Discharge Instructions: Pt needs to f/u with PMD Dr. Pak, and Urologist, Dr. Stanford. Discussed case with Dr. Carrasco. Ladonna Dorantes, PGY2 Discharge Exam - Head Exam Head Exam: NORMAL INSPECTION - Eye Exam Eye Exam: Normal appearance - ENT Exam ENT Exam: Mucous Membranes Moist - Neck Exam Neck exam: Full Rom - Respiratory Exam Respiratory Exam: Clear to PA & Lateral - GI/Abdominal Exam GI & Abdominal Exam: Normal Bowel Sounds, Soft - Neurological Exam Neurological exam: Alert, Oriented x3 - Psychiatric Exam Psychiatric exam: Normal Mood - Skin Skin Exam: Normal Color Discharge Plan - Discharge Medications Prescriptions: Ibuprofen [Motrin Tab] 600 mg PO Q6 #30 tab - Follow Up Plan Condition: FAIR Disposition: HOME/ ROUTINE Instructions: Acute Kidney Failure, Urinary Tract Infection, Adult (DC), How to Care for Your Vazquez Catheter, Female, Urinary Retention (DC) Additional Instructions: follow up with primary MD 1 week Referrals: [facility] [place] [Outside] Yahir San MD [Staff Provider] - Yvon Stanford Jr., MD [Staff Provider] -
== END 2018-07-29 12:42 | disposition home or self-care (01) | DRG 316 ==
LOC: H.ER 06:04 → H.ERHOLD 09:31 → H.TEL 11:12 → H.MEDSURG1 07-28 00:21
PROVIDERS: ADMIT Internal Medicine; ATTEND Internal Medicine
DX: N17.0 Acute kidney failure with tubular necrosis (principal); E87.6 Hypokalemia; N39.0 Urinary tract infection, site not specified; R32 Unspecified urinary incontinence; N13.9 Obstructive and reflux uropathy, unspecified; N13.6 Pyonephrosis; E88.09 Other disorders of plasma-protein metabolism, not elsewhere classified; D64.9 Anemia, unspecified; R31.9 Hematuria, unspecified

== ENCOUNTER 2018-08-04 09:34 | Emergency (ER) | payer OTHER ==
[2018-08-04 09:38] VITALS: BMI 20.9
--- NOTE | 2018-08-04 11:25 | ED PDOC ---
HPI: Female Pain Time Seen by Provider: 08/04/18 10:24 Chief Complaint (Nursing): Female Genitourinary History Per: Patient (patient is here for vazquez catheter removal. Patient was recently treated for acute renal failure due to acute urinary outflow obstruction. Patient was admitted and now discharged about one week ago. She states that the urologist that she was referred to does not accept her insurance. ) Past Medical History Reviewed: Historical Data, Nursing Documentation, Vital Signs Vital Signs: Last Vital Signs Temp 98.3 F 08/04/18 09:38 Pulse 105 H 08/04/18 09:38 Resp 17 08/04/18 09:38 BP 106/73 08/04/18 09:38 Pulse Ox 99 08/04/18 09:38 - Medical History PMH: No Chronic Diseases Denies: HIV, Chronic Kidney Disease - Surgical History Surgical History: No Surg Hx - Family History Family History: States: No Known Family Hx, Diabetes, Hypertension - Living Arrangements Living Arrangements: With Family - Home Medications Home Medications: Ambulatory Orders Medication Instructions Recorded Ibuprofen [Motrin Tab] 600 mg PO Q6 #30 tab 07/23/18 Sulfamethoxazole/Trimethoprim 1 tab PO BID #14 tab 08/04/18 [Bactrim DS 800 mg-160 mg] - Allergies Allergies/Adverse Reactions: Allergies Allergy/AdvReac Type Severity Reaction Status Date / Time No Known Allergies Allergy Verified 07/22/18 18:55 Review of Systems ROS Statement: Except As Marked, All Systems Reviewed And Found Negative Constitutional: Negative for: Fever, Chills Respiratory: Negative for: Cough Gastrointestinal: Negative for: Nausea, Vomiting, Abdominal Pain Genitourinary Female: Negative for: Dysuria, Frequency Physical Exam - Reviewed Nursing Documentation Reviewed: Yes Vital Signs Reviewed: Yes - Physical Exam Appears: Positive for: Well Skin: Positive for: Normal Color Eye Exam: Positive for: Normal appearance ENT: Positive for: Normal ENT Inspection Neck: Positive for: Supple Gastrointestinal/Abdominal: Positive for: Normal Exam Extremity: Positive for: Normal ROM - ECG O2 Sat by Pulse Oximetry: 99 Medical Decision Making Medical Decision Making: case d/w Dr. Carrasco who took care of this patient on medical service. He has no objection to removal of catheter and to monitor for urine output. 2.30p - patient passed urine finally. There is some leukocytes. Disposition - Clinical Impression Clinical Impression: Urinary retention - Patient ED Disposition Is Patient to be Admitted: No Doctor Will See Patient In The: Office Counseled Patient/Family Regarding: Diagnosis, Need For Followup - Disposition Disposition: Routine/Home Disposition Time: 14:34 Condition: STABLE Prescriptions: Sulfamethoxazole/Trimethoprim [Bactrim DS 800 mg-160 mg] 1 tab PO BID #14 tab Instructions: Urinary Retention, Urinary Tract Infections in Adults Forms: [facility] (Uzbek) - POA Present On Arrival: None
[2018-08-04 14:46] VITALS: BP 112/66; PULSE 73; RESP 16; TEMP 98.1; O2SAT 100
== END 2018-08-04 14:40 | disposition home or self-care (01) ==
LOC: H.ER 09:34
DX: R33.9 Retention of urine, unspecified (principal); Z46.6 Encounter for fitting and adjustment of urinary device

== ENCOUNTER 2019-01-14 08:54 | Emergency (ER) | payer MEDICAID, OTHER ==
[2019-01-14 09:12] VITALS: BMI 20.3
[2019-01-14 09:15] VITALS: O2SAT 100
--- NOTE | 2019-01-14 10:18 | ED PDOC ---
HPI: CCC, URI, Sore Throat Time Seen by Provider: 01/14/19 09:22 Chief Complaint (Nursing): Flu-like Symptoms Chief Complaint (Provider): Flu-like Symptoms History Per: Patient History/Exam Limitations: no limitations Onset/Duration Of Symptoms: Persistent (x1 week) Current Symptoms Are (Timing): Still Present Additional Complaint(s): 23 year old female presents to the emergency department with complaints of sore throat, cough, congestion, and fever for the past week. Patient has not taken any medications for relief. She denies vomiting, diarrhea, or further compla ints. LMP: 12/2018. PCP: none provided Past Medical History Reviewed: Historical Data, Nursing Documentation, Vital Signs Vital Signs: Last Vital Signs Temp 98.7 F 01/14/19 09:12 Pulse 108 H 01/14/19 09:12 Resp 18 01/14/19 09:12 BP 107/67 01/14/19 09:12 Pulse Ox 100 01/14/19 09:12 - Medical History PMH: No Chronic Diseases Denies: HIV, Chronic Kidney Disease - Surgical History Surgical History: No Surg Hx - Family History Family History: States: Diabetes, Hypertension - Home Medications Home Medications: Ambulatory Orders Medication Instructions Recorded Ibuprofen [Motrin Tab] 600 mg PO Q6 #30 tab 07/23/18 Sulfamethoxazole/Trimethoprim 1 tab PO BID #14 tab 08/04/18 [Bactrim DS 800 mg-160 mg] Benzonatate [Tessalon Perle] 100 mg PO TID PRN #20 capsule 01/14/19 - Allergies Allergies/Adverse Reactions: Allergies Allergy/AdvReac Type Severity Reaction Status Date / Time No Known Allergies Allergy Verified 07/22/18 18:55 Review of Systems ROS Statement: Except As Marked, All Systems Reviewed And Found Negative Constitutional: Positive for: Fever ENT: Positive for: Nose Congestion, Throat Pain Respiratory: Positive for: Cough Gastrointestinal: Negative for: Vomiting, Diarrhea Physical Exam - Reviewed Nursing Documentation Reviewed: Yes Vital Signs Reviewed: Yes - Physical Exam Appears: Positive for: Well, Non-toxic, No Acute Distress Head Exam: Positive for: ATRAUMATIC, NORMAL INSPECTION, NORMOCEPHALIC Skin: Positive for: Normal Color Eye Exam: Positive for: Normal appearance, EOMI, PERRL ENT: Positive for: Normal ENT Inspection, TM Is/Are (clear bilaterally. nonbulging and nonerythematous). Negative for: Pharyngeal Erythema, Tonsillar Swelling Neck: Positive for: Normal, Supple Cardiovascular/Chest: Positive for: Regular Rate, Rhythm Respiratory: Positive for: Normal Breath Sounds. Negative for: Respiratory Distress Neurological/Psych: Positive for: Awake, Alert, Normal Tone, Oriented (x3) - ECG O2 Sat by Pulse Oximetry: 100 (RA) Pulse Ox Interpretation: Normal Medical Decision Making Medical Decision Making: Time: 1011 Initial Plan: --Upon provider evaluation, patient is medically stable and requires no further treatment in the ED at this time. Patient will be discharged home. Counseling was provided and all questions were answered regarding diagnosis. There is agreement to discharge plan. Return if symptoms persist or worsen. Clinical Impression: URI ----- Scribe Attestation: Documented by Vicki Ibarra, acting as a scribe for Kika Montgomery MD. Provider Scribe Attestation: All medical record entries made by the Scribe were at my direction and personally dictated by me. I have reviewed the chart and agree that the record accurately reflects my personal performance of the history, physical exam, medical decision making, and the department course for this patient. I have also personally directed, reviewed, and agree with the discharge instructions and disposition. Disposition - Clinical Impression Clinical Impression: URI (upper respiratory infection) - Patient ED Disposition Is Patient to be Admitted: No Doctor Will See Patient In The: Office Counseled Patient/Family Regarding: Diagnosis, Need For Followup, Rx Given - Disposition Disposition: Routine/Home Disposition Time: 11:25 Condition: STABLE Prescriptions: Benzonatate [Tessalon Perle] 100 mg PO TID PRN #20 capsule PRN Reason: Cough Instructions: Viral Upper Respiratory Infection, Adult (DC) Forms: [facility] (I[place]ic), [facility] ED School/Work Excuse - POA Present On Arrival: None
[2019-01-14 11:34] VITALS: BP 125/80; PULSE 75; RESP 16; TEMP 97.8
== END 2019-01-14 11:34 | disposition home or self-care (01) ==
LOC: H.ER 08:54
DX: J06.9 Acute upper respiratory infection, unspecified (principal)